=== PATIENT | female | born 2005 | race Caucasian/White ===

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

== ENCOUNTER 2023-01-06 10:24 | Emergency (ER) | payer OTHER ==
[~2023-01-06] VITALS: Ht 149.9 cm; Wt 56.8 kg
[2023-01-06 10:27] VITALS: BP 119/69; PULSE 62; RESP 18; TEMP 98.2
[2023-01-06] MEDS: BENZOCAINE 10% 7 GM GEL TP ONE (11:44)
== END 2023-01-06 12:25 | disposition home or self-care (01) ==
LOC: EMS 10:29
DX: B00.1 Herpesviral vesicular dermatitis (principal); F12.90 Cannabis use, unspecified, uncomplicated
CPT/HCPCS: 99282; Z7502; Z7610